=== PATIENT | male | born 2000 | race Caucasian/White ===

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

== ENCOUNTER → 2019-06-28 08:16 | Day surgery (SDC) | payer BC ==
[~2019-06-28 08:16] MED LIST changes: +Acetaminophen TAB* 325 MG PO PRN; -Buffered Lidocaine 0.9% SYRIN* 5 ML/SYR SYRINGE INTRADERM ONE; +Buffered Lidocaine 1% SYRIN* 1 ML/SYRINGE INTRADERM ONE; +Bupivacaine 0.25% SDV* 30 ML ONE; +Dexamethasone IV* 4 MG/ML 1 ML (4 MG) ONE; +DiMENhydriNATE IV* 50 MG/ML VIAL IV PUSH PRN; +DiMENhydriNATE IV* 50 MG/ML VIAL ONE; +Famotidine IV* 10 MG/ML 2 ML (20 mg) ONE; +Ketorolac INJ* 30 MG/ML 1 ML VIAL ONE; +Lactated Ringers 1000 ML Bag* 1,000 ML IV SCH; +Lidocaine 1% MPF ** 5 ML VIAL ONE; +Lidocaine 1% w EPI 1:200,000* SDV 30 ML VIAL ONE; +Midazolam* 1 MG/ML 5 ML VIAL (5 MG) ONE; +Naloxone* 0.4 MG/ML 1 ML VIAL IV PRN; +Ondansetron INJ* 2 MG/ML VIAL ONE; +Propofol* 10 MG/ML 20 ML BTL ONE; +ROPIVACAINE 5 MG/ML 30 ML BTL (0.5%) ONE; +Ropivacaine 0.2% * 2 MG/ML VIAL ONE; +Succinylcholine* 20 MG/ML 10 ML VIAL ONE; +ceFAZolin 2 GM PREMIX in ORs 2 GM/50 ML BAG ONE; +fentaNYL* 50 MCG/ML 2 ML VIAL (100 MCG VIAL) ONE; +oxyCODONE TAB* 5 MG TAB PO PRN; +oxyCODONE/Acetamin 5/325 MG* TAB ONE
[2019-06-28 14:04] VITALS: BP 128/64
--- NOTE | 2019-06-29 02:03 | OP ---
OPERATIVE REPORT: DATE OF OPERATION: 06/28/19 - [facility] DATE OF : 99 SURGEON: Vinod Aguilera MD PUBLISHING AGENT: CAMELIA Chahal An cashier assistant was needed for the entirety of the case to help with positioning, retraction, and utilized throughout all portions of the case. ANESTHESIOLOGIST: Dr. Olvera. ANESTHESIA: General with interscalene block. 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 OPERATIVE PROCEDURE: Right shoulder arthroscopy with: 1. Extensive glenohumeral debridement including chondroplasty. 2. Removal of foreign body implant x3. 3. Revision arthroscopic labral repair. 4. Open biceps tenodesis. COMPLICATIONS: None. IMPLANTS: 1 1.8 curved qfix, 2 bioraptors, 1 2.8 qfix ESTIMATED BLOOD LOSS: Minimal. INDICATIONS: Olvin Jauregui is a 19-year-old male who underwent a previous labral repair by my colleague, Dr. Denis Clifford, on 05/05/15. He had intermittent symptoms. He did dislocate at least several times since that time and he has had persistent pain. After extensive discussion of risks and benefits of operative versus nonoperative treatment, he has elected to proceed with surgical treatment. Risks include but not limited to bleeding; infection; damage to nerves, vessels, surrounding structures; wound nonhealing; persistent pain; need for further surgery; scaring; stiffness; incomplete relief of symptoms; risks of anesthesia; worsening arthritis, he has elected to proceed with anesthesia. DESCRIPTION OF PROCEDURE: The patient was greeted in the preoperative area by the attending surgeon. The correct extremity was marked. Consent was confirmed. The patient underwent interscalene nerve block by the anesthesiologist after which he was brought back to the operating suite. He was placed in the supine position on the operating room table and underwent general anesthesia with endotracheal intubation after which he was placed in the left lateral decubitus position. All bony prominences were padded. He was secured with a peg board. The right arm was draped unsterile with 10 pounds of traction. The right shoulder was then prepped and draped in the usual sterile fashion beginning with chlorhexidine soap, scrub, and alcohol wipe and a final prep with ChloraPrep. After appropriate surgical pause indicating site, side, procedure, and administration of antibiotics, the standard posterolateral portal was made sharp with an 11 blade. Scope was introduced into the joint. The joint was examined. There was evidence of bicipital tendonitis and tendinosis. Superior labrum was injured and was torn and the low anterior portal was then made using an 18-gauge needle with localization. An 8.5 mm cannula was then placed. There was evidence of the head subluxed anteriorly. There was evidence of the previous repair which was evaluated and found to have not fully healed. One of the sutures had ruptured; the other one was intact more superiorly. The suture was cut and then all the excess suture pieces were removed so that I could repair this again. The lateral liz was used to allow for distraction. The biceps was examined and there was evidence of a superior labral tear and the tendinitis as well as his preoperative exam and function. The biceps was then tenotomized for later tenodesis. A second cannula, which was a 5.5 mm cannula, was then placed superiorly in the interval. The joint was examined. The glenoid had grade 2 changes with unstable flap. This was debrided back using the shaver. The humerus had grade 0 changes. The inferior recess was intact. There was some fraying of the posterior labrum, but no obvious tearing. The undersurface of the supraspinatus and subscap were intact. Decision was made to revise this labral tear, so the previous sutures again were removed and attention was directed to the repair. The labrum was then elevated, care was taken because the quality was okay tissue but not as good as the first time, but this was obviously revised labrum and a limited tissue trauma was the plan. As it was elevated, the glenoid was then rasped using red ball rasp, a double-sided rasp, and a shaver. This allowed for good bony bleeding bed. Once this was complete, a 70-degree scope was used to visualize the inferior aspect of the glenoid and a suture anchor placement began first with a curved Q-Fix 1.8 mm. This was drilled and placed with excellent purchase. Sutures were then passed in a horizontal mattress configuration to allow for inferior to superior shift as well. This was then tied down and this helped to eliminate drive-through sign. This was placed at the 5:30 to 5:45 position. The second one was placed around the 4:30 position, this was Bioraptor, this was placed with excellent purchase. Bone quality was quite good. Sutures were then passed in horizontal mattress configuration and allowed to restore the labrum as well as the bumper. The final anchor was placed at around the 3 o'clock position and placed in a simple fashion. This helped to restore the labrum. The head was found to be sitting more appropriately. The final images were obtained. Any debridement was completed at that time. Attention was directed to the biceps. The bed was airplaned to the right side. The anterior aspect of the shoulder was prepped again using ChloraPrep. The 15 blade was used to make an incision in line with the biceps tendon. Soft tissues were carefully dissected to expose the pec tendon. The remainder of the dissection was done bluntly. The pec was elevated, the biceps were palpated through the groove and then brought through the wound, had abundant synovitis. The groove was then prepared in the usual fashion with red ball rasp, osteotome, and the Q-Fix was deployed with excellent purchase. The sutures were then passed through the tendon musculature in a Danny-Dallas type configuration and tied down using arthroscopic knot tying technique. The wounds were then copiously irrigated. The portals were closed with 3-0 nylon. The anterior wound was closed in layers with 3-0 Monocryl. Sterile dressings were applied. A Cryo/Cuff and UltraSling were applied. He was awoken from anesthesia and transferred to PACU in stable condition. POSTOPERATIVE PLAN: He will be nonweightbearing. He will be in a sing for 4 weeks. Discharged on pain medication. DVT prophylaxis was considered but deferred due to no previous personal or family history. I will put him on antibiotics for revision surgery. [id number]/[facility] #: [id number] TREVOR
== END | disposition home or self-care (01) ==
LOC: OREAST 08:16
PROVIDERS: ATTEND Orthopaedic Surgery
DX: M25.311 Other instability, right shoulder (principal); M75.21 Bicipital tendinitis, right shoulder; M93.811 Other specified osteochondropathies, right shoulder; G89.18 Other acute postprocedural pain
CPT/HCPCS: A9270-GY; C1776; J0330; J0690; J1100; J1240; J1885; J2001; J2250; J2405; J2704; J2795; J3010; J3490